=== PATIENT | male | born 1995 | race Caucasian/White ===

== ENCOUNTER 2016-09-11 19:07 | Emergency (ER) | payer MEDICAID, OTHER ==
[~2016-09-11] VITALS: Ht 175.3 cm; Wt 75.9 kg
[2016-09-12 01:37] VITALS: BP 119/68
== END 2016-09-12 01:42 | disposition home or self-care (01) ==
LOC: EMS 19:10
DX: S09.90XA Unspecified injury of head, initial encounter (principal); Y04.0XXA Assault by unarmed brawl or fight, initial encounter; Y93.89 Activity, other specified; Y92.89 Other specified places as the place of occurrence of the external cause; Y99.8 Other external cause status
CPT/HCPCS: 70450; 70486; 99284

== ENCOUNTER 2021-07-01 12:15 | Emergency (ER) | payer SELFPAY ==
[~2021-07-01] VITALS: Ht 170.2 cm; Wt 84.1 kg
[2021-07-01 12:47] VITALS: BP 119/81
== END 2021-07-01 15:32 | disposition home or self-care (01) ==
LOC: EMS 12:19
DX: S80.02XA Contusion of left knee, initial encounter (principal); S30.0XXA Contusion of lower back and pelvis, initial encounter; W18.39XA Other fall on same level, initial encounter; Y93.89 Activity, other specified; Y92.89 Other specified places as the place of occurrence of the external cause; Y99.8 Other external cause status
CPT/HCPCS: 72100; 99283; 99284

== ENCOUNTER 2021-07-05 15:47 | Emergency (ER) | payer SELFPAY ==
[~2021-07-05] VITALS: Ht 172.7 cm; Wt 84.1 kg
[2021-07-05 15:52] VITALS: BP 138/90
== END 2021-07-05 16:33 | disposition home or self-care (01) ==
LOC: EMS 15:50
DX: M54.9 Dorsalgia, unspecified (principal)
CPT/HCPCS: 99282; Z7502